=== PATIENT | female | born 1935 | race Caucasian/White ===

== ENCOUNTER 2017-06-29 12:17 | Outpatient (CLI) | payer MEDICARE, OTHER ==
[~2017-06-29 12:17] MED LIST: AMIO200T27 PO; ASCO-134 PO; CALC-1051 PO; CAPT25TA3 PO; CARV-50 PO; CEPH-194 PO; FERR325T29 PO; FURO40TA4 PO; GLUC500T12 PO; HYDR-3965 PO; HYDR-4069 PO; LEVO150T8 PO; MAGN400C PO; MULT-38 PO; NITR0.4T51 SL; PANT40TA4 PO; POTA10TA36 PO; SIMV10TA6 PO; SPIR25TA3 PO; VITA1TAB20 PO; VITA400C65 PO; WARF1TAB83 PO; [UNRECOGNIZED DRUG - CODE] NEB
[2017-06-30] MEDS ORDERED: APIX5TAB3 PO (06:37)
[2017-06-30] MEDS ORDERED: FLUT16SP2 BOTHNARES (06:37)
[2017-06-30] MEDS ORDERED: MONT10TA24 PO (06:37)
[2017-06-30] MEDS ORDERED: CALCIUM PO (06:37)
[2017-06-30] MEDS ORDERED: ALBU8.5H8 INH (06:37)
== END 2017-06-29 23:59 | disposition home or self-care (01) ==
LOC: RT 12:17
PROVIDERS: ATTEND Internal Medicine Cardiovascular Disease
DX: Z51.81 Encounter for therapeutic drug level monitoring (principal); J98.4 Other disorders of lung; D64.9 Anemia, unspecified; I11.0 Hypertensive heart disease with heart failure; I50.9 Heart failure, unspecified; J44.9 Chronic obstructive pulmonary disease, unspecified; Z79.899 Other long term (current) drug therapy; Z87.891 Personal history of nicotine dependence
CPT/HCPCS: 71046; 94010; 94727; 94729

== ENCOUNTER 2017-10-31 12:18 | Day surgery (SDC) | payer MEDICARE, OTHER ==
[~2017-10-31] VITALS: Ht 147.3 cm; Wt 79.5 kg
[~2017-10-31 12:18] MED LIST changes: +ALBU8.5H8 INH; +APIX5TAB3 PO; -CALC-1051 PO; +CALCIUM PO; -CEPH-194 PO; +FLUT16SP2 BOTHNARES; -GLUC500T12 PO; -HYDR-3965 PO; -HYDR-4069 PO; +MONT10TA24 PO; -SPIR25TA3 PO; +SPIR25TA5 PO; -WARF1TAB83 PO
[2017-10-31] MEDS ORDERED: MELA3TAB PO (12:44)
[2017-10-31] MEDS ORDERED: GABA-532 PO (12:44)
[2017-10-31] MEDS ORDERED: METO-543 (12:46)
[2017-10-31] MEDS ORDERED: potassium (12:47)
[2017-10-31] MEDS ORDERED: MIDAZolam 5mg/5ml vial ONE (12:50)
[2017-10-31] MEDS ORDERED: LIDOcaine Viscous 15ml cup ONE (12:50)
[2017-10-31] MEDS ORDERED: fentaNYL/PF 50MCG/1 ML 2ML syringe ONE (12:50)
[2017-10-31 12:51] VITALS: BP 113/72
[2017-10-31 13:35] VITALS: BP 106/63
[2017-10-31 13:45] VITALS: BP 105/60
[2017-10-31 13:55] VITALS: BP 109/66
[2017-10-31 14:05] VITALS: BP 108/61
== END 2017-10-31 14:15 | disposition home or self-care (01) ==
LOC: GI LAB 12:18
PROVIDERS: ATTEND Internal Medicine Gastroenterology
DX: K29.50 Unspecified chronic gastritis without bleeding (principal); K21.0 Gastro-esophageal reflux disease with esophagitis; E78.5 Hyperlipidemia, unspecified; G47.33 Obstructive sleep apnea (adult) (pediatric); M19.90 Unspecified osteoarthritis, unspecified site; F10.10 Alcohol abuse, uncomplicated; N81.4 Uterovaginal prolapse, unspecified; I11.0 Hypertensive heart disease with heart failure; I50.30 Unspecified diastolic (congestive) heart failure; I25.10 Atherosclerotic heart disease of native coronary artery without angina pectoris; E03.9 Hypothyroidism, unspecified; I49.5 Sick sinus syndrome; I25.2 Old myocardial infarction; E66.01 Morbid (severe) obesity due to excess calories; I48.0 Paroxysmal atrial fibrillation; Z68.36 Body mass index [BMI] 36.0-36.9, adult; Z79.891 Long term (current) use of opiate analgesic; Z88.5 Allergy status to narcotic agent; Z91.040 Latex allergy status; Z86.74 Personal history of sudden cardiac arrest; Z87.891 Personal history of nicotine dependence; Z87.01 Personal history of pneumonia (recurrent); Z90.49 Acquired absence of other specified parts of digestive tract; Z96.643 Presence of artificial hip joint, bilateral; Z96.652 Presence of left artificial knee joint; Z90.89 Acquired absence of other organs; Z79.01 Long term (current) use of anticoagulants; Z95.0 Presence of cardiac pacemaker; Z90.710 Acquired absence of both cervix and uterus; Z98.890 Other specified postprocedural states; Z79.899 Other long term (current) drug therapy
CPT/HCPCS: 43239; G0500; J2250; J3010; J7030; A4620

== ENCOUNTER 2017-11-10 17:13 | Emergency (ER) | payer MEDICARE, OTHER ==
[~2017-11-10] VITALS: Ht 147.3 cm; Wt 75.0 kg
[~2017-11-10 17:13] MED LIST changes: -ALBU8.5H8 INH; -FERR325T29 PO; -FLUT16SP2 BOTHNARES; +GABA-532 PO; -MAGN400C PO; +MELA3TAB PO; +METO-543; -MONT10TA24 PO; -POTA10TA36 PO; -VITA1TAB20 PO; +potassium
[2017-11-10 18:47] LABS: BASOPHILS % (AUTO) 0 % (0-1); EOSINOPHILS % (AUTO) 0.3 % (0-6); HEMATOCRIT 37.1 % (35.0-45.0); HEMOGLOBIN 12.1 g/dl (12.0-16.0); LYMPHOCYTES # (AUTO) 0.6 X10'3 (1.1-4.8); LYMPHOCYTES % (AUTO) 6.1 % (21-51); MEAN CORPUSCULAR HEMOGLOBIN 28.7 PG (27.0-31.0); MEAN CORPUSCULAR HGB CONC 32.6 % (33.0-36.5); MEAN CORPUSCULAR VOLUME 88.2 FL (78-98); MEAN PLATELET VOLUME 8.4 FL (7.4-10.4); MONOCYTES % (AUTO) 10.3 % (2-12); NEUTROPHILS # (AUTO) 8.2 X10'3 (1.8-7.7); NEUTROPHILS % (AUTO) 83.3 % (42-75); PLATELET COUNT 199 X10'3 (140-440); RED BLOOD COUNT 4.21 X10'6 (4.20-5.60); RED CELL DISTRIBUTION WIDTH 17.9 % (11.5-14.5); WHITE BLOOD COUNT 9.8 X10'3 (4.5-11.0)
[2017-11-10 18:56] LABS: PROTHROMBIN TIME 10.7 SECONDS (9.0-12.0)
[2017-11-10 19:00] LABS: ALANINE AMINOTRANSFERASE 16 U/L (12-78); ALBUMIN 3.9 G/DL (3.4-5.0); ALKALINE PHOSPHATASE 88 IU/L (46-116); ANION GAP 10 (8-16); ASPARTATE AMINO TRANSFERASE 17 U/L (10-37); BILIRUBIN,TOTAL 0.5 MG/DL (0.1-1.0); BLOOD UREA NITROGEN 25 MG/DL (7-18); CALCIUM 9.5 MG/DL (8.5-10.1); CHLORIDE 104 MMOL/L (99-107); CREATININE 1.19 MG/DL (0.40-0.90); GLUCOSE 99 MG/DL (70-104); POTASSIUM 4.6 MMOL/L (3.5-5.1); SODIUM 145 MMOL/L (135-145); TOTAL CARBON DIOXIDE 30.9 MMOL/L (24-32); TOTAL PROTEIN 7.8 G/DL (6.4-8.2); eGFR 44 ML/MIN
[2017-11-10] MEDS ORDERED: metoclopramide 5 mg/ml inj IV ONE (19:25)
[2017-11-10 19:39] LABS: LIPASE 112 U/L (73-393)
[2017-11-10] MEDS ORDERED: ONDA4TAB9 PO (20:20)
[2017-11-10 20:42] VITALS: BP 153/80
== END 2017-11-10 20:44 | disposition home or self-care (01) ==
LOC: ER 17:14
DX: R10.12 Left upper quadrant pain (principal); R11.2 Nausea with vomiting, unspecified; I10 Essential (primary) hypertension; I48.91 Unspecified atrial fibrillation; I25.10 Atherosclerotic heart disease of native coronary artery without angina pectoris; E78.00 Pure hypercholesterolemia, unspecified; I25.2 Old myocardial infarction; M19.90 Unspecified osteoarthritis, unspecified site; Z90.49 Acquired absence of other specified parts of digestive tract; Z90.710 Acquired absence of both cervix and uterus; Z88.6 Allergy status to analgesic agent; Z91.040 Latex allergy status
CPT/HCPCS: 36415; 74176; 80053; 83690; 85025; 85610; 96374; 99285; J2765

== ENCOUNTER 2018-01-25 14:07 | Outpatient (CLI) | payer MEDICARE, OTHER ==
[2018-01-25 14:45] LABS: TOTAL HEMOGLOBIN 11.1 G/dl (12.0-16.0)
== END 2018-01-25 23:59 | disposition home or self-care (01) ==
LOC: RT 14:07
PROVIDERS: ATTEND Internal Medicine Cardiovascular Disease
DX: Z51.81 Encounter for therapeutic drug level monitoring (principal); F17.210 Nicotine dependence, cigarettes, uncomplicated; J44.9 Chronic obstructive pulmonary disease, unspecified; I11.0 Hypertensive heart disease with heart failure; I50.9 Heart failure, unspecified; I25.2 Old myocardial infarction; Z79.899 Other long term (current) drug therapy
CPT/HCPCS: 71046; 85018; 94010; 94727; 94729

== ENCOUNTER 2018-07-18 13:48 | Emergency (ER) | payer MEDICARE, OTHER ==
[~2018-07-18] VITALS: Ht 149.9 cm; Wt 83.7 kg
[2018-07-18] MEDS ORDERED: normal saline 1000ml 1,000 ML IV ONE (14:15)
[2018-07-18] MEDS ORDERED: acetaminophen 325mg tablet PO ONE (14:25)
[2018-07-18 14:53] LABS: ALANINE AMINOTRANSFERASE 13 U/L (12-78); ALBUMIN 3.9 G/DL (3.4-5.0); ALBUMIN/GLOBULIN RATIO 1.1 (1.1-1.5); ALKALINE PHOSPHATASE 78 IU/L (46-116); ANION GAP 7 (8-16); ASPARTATE AMINO TRANSFERASE 16 U/L (10-37); BILIRUBIN,TOTAL 0.3 MG/DL (0.1-1.0); BLOOD UREA NITROGEN 29 MG/DL (7-18); BUN/CREATININE RATIO 21.3 (6.6-38.0); CALCIUM 9.5 MG/DL (8.5-10.1); CHLORIDE 102 MMOL/L (99-107); CREATININE 1.36 MG/DL (0.40-0.90); GLUCOSE 129 MG/DL (70-104); SODIUM 140 MMOL/L (135-145); TOTAL CARBON DIOXIDE 31.1 MMOL/L (24-32); TOTAL PROTEIN 7.5 G/DL (6.4-8.2); eGFR 37 ML/MIN
[2018-07-18 14:57] LABS: BASOPHILS % (AUTO) 0.7 % (0-1); EOSINOPHILS # (AUTO) 0.1 X10'3 (0-0.9); EOSINOPHILS % (AUTO) 0.9 % (0-6); HEMATOCRIT 39.5 % (35.0-45.0); HEMOGLOBIN 13.1 g/dl (12.0-16.0); LYMPHOCYTES # (AUTO) 0.8 X10'3 (1.1-4.8); LYMPHOCYTES % (AUTO) 13.5 % (21-51); MEAN CORPUSCULAR HEMOGLOBIN 31.5 PG (27.0-31.0); MEAN CORPUSCULAR HGB CONC 33.3 g/dL (33.0-36.5); MEAN CORPUSCULAR VOLUME 94.8 FL (78-98); MEAN PLATELET VOLUME 8.3 FL (7.4-10.4); MONOCYTES # (AUTO) 0.7 X10'3 (0-0.9); MONOCYTES % (AUTO) 12.6 % (2-12); NEUTROPHILS # (AUTO) 4.2 X10'3 (1.8-7.7); NEUTROPHILS % (AUTO) 72.3 % (42-75); PLATELET COUNT 187 X10'3 (140-440); RED BLOOD COUNT 4.17 X10'6 (4.20-5.60); RED CELL DISTRIBUTION WIDTH 16.9 % (11.5-14.5); WHITE BLOOD COUNT 5.8 X10'3 (4.5-11.0)
[2018-07-18 15:02] LABS: MAGNESIUM 2.4 MG/DL (1.5-2.4)
[2018-07-18 16:34] LABS: CLARITY,URINE SLIGHTLY CLOUDY (Clear); COLOR,URINE YELLOW (Yellow); GLUCOSE, URINE NEGATIVE (Neg); KETONES,URINE NEGATIVE (Neg); LEUKOCYTE ESTERASE ,URINE TRACE (Neg); NITRITES, URINE NEGATIVE (Neg); OCCULT BLOOD,URINE NEGATIVE (Neg); PH,URINE 6.5 (4.8-8.0); PROTEIN,URINE NEGATIVE (Neg); UROBILINOGEN,URINE 0.2 E.U/dL (0.2-1.0)
[2018-07-18 16:36] LABS: UA COLLECTION TYPE STRAIGHT CATH
[2018-07-18 16:41] LABS: BACTERIA,URINE 4+ /HPF (Neg); RBC,URINE NONE SEEN /HPF (0-2); SQUAMOUS EPITHELIAL CELL,UR FEW /LPF (FEW); TRANSITIONAL EPI CELLS,URINE FEW /HPF; WBC CLUMPS,URINE FEW /HPF (NEGATIVE); WBC,URINE 0-4 /HPF (0-4)
[2018-07-18] MEDS ORDERED: CEPH250T PO (17:00)
[2018-07-18] MEDS ORDERED: CefTRIAXone/D5W-Rocephin 1gm 50 ML IV ONE (17:00)
[2018-07-18 17:50] VITALS: BP 121/75
== END 2018-07-18 17:51 | disposition home or self-care (01) ==
LOC: ER 13:49
DX: N39.0 Urinary tract infection, site not specified (principal); R41.0 Disorientation, unspecified; I48.91 Unspecified atrial fibrillation; I25.10 Atherosclerotic heart disease of native coronary artery without angina pectoris; E78.00 Pure hypercholesterolemia, unspecified; I10 Essential (primary) hypertension; I25.2 Old myocardial infarction; M19.90 Unspecified osteoarthritis, unspecified site; Z90.49 Acquired absence of other specified parts of digestive tract; Z90.710 Acquired absence of both cervix and uterus; Z98.890 Other specified postprocedural states; Z91.040 Latex allergy status; Z79.899 Other long term (current) drug therapy; Z88.5 Allergy status to narcotic agent
CPT/HCPCS: 36415; 70450; 71045; 80053; 81001; 82140; 82948; 83735; 83880; 84443; 84484; 85025; 85651; 87077; 87088; 87186; 93005; 96361; 96365; 99284; J0696; J7030; P9612

== ENCOUNTER 2018-11-06 13:28 | Inpatient (IN) | payer MEDICARE, OTHER ==
[~2018-11-06] VITALS: Ht 144.8 cm; Wt 78.8 kg
[~2018-11-06 13:28] MED LIST changes: +CEPH250T PO; -MELA3TAB PO; +MELA3TAB64 PO; -METO-543; +METO-543 PO
[2018-11-06 14:06] LABS: BASOPHILS # (AUTO) 0.1 X10'3 (0-0.2); EOSINOPHILS # (AUTO) 0.2 X10'3 (0-0.9); HEMATOCRIT 39.4 % (35.0-45.0); HEMOGLOBIN 13.2 g/dl (12.0-16.0); LYMPHOCYTES # (AUTO) 0.9 X10'3 (1.1-4.8); MEAN CORPUSCULAR HEMOGLOBIN 31.9 PG (27.0-31.0); MEAN CORPUSCULAR HGB CONC 33.4 g/dL (33.0-36.5); MEAN CORPUSCULAR VOLUME 95.6 FL (78-98); MEAN PLATELET VOLUME 8.2 FL (7.4-10.4); MONOCYTES # (AUTO) 0.9 X10'3 (0-0.9); MONOCYTES % (AUTO) 14.6 % (2-12); NEUTROPHILS # (AUTO) 4.3 X10'3 (1.8-7.7); NEUTROPHILS % (AUTO) 67.4 % (42-75); PLATELET COUNT 213 X10'3 (140-440); RED BLOOD COUNT 4.12 X10'6 (4.20-5.60); RED CELL DISTRIBUTION WIDTH 15.7 % (11.5-14.5); WHITE BLOOD COUNT 6.3 X10'3 (4.5-11.0)
[2018-11-06 14:19] LABS: PARTIAL THROMBOPLASTIN TIME 35 SECONDS (22-32)
[2018-11-06 14:22] LABS: ALANINE AMINOTRANSFERASE 12 U/L (12-78); ALBUMIN 4.2 G/DL (3.4-5.0); ALBUMIN/GLOBULIN RATIO 1.2 (1.1-1.5); ALKALINE PHOSPHATASE 85 IU/L (46-116); ANION GAP 9 (8-16); ASPARTATE AMINO TRANSFERASE 14 U/L (10-37); BILIRUBIN,TOTAL 0.4 MG/DL (0.1-1.0); CALCIUM 9.9 MG/DL (8.5-10.1); CHLORIDE 102 MMOL/L (99-107); CREATININE 1.48 MG/DL (0.40-0.90); GLUCOSE 99 MG/DL (70-104); POTASSIUM 4.3 MMOL/L (3.5-5.1); SODIUM 141 MMOL/L (135-145); TOTAL PROTEIN 7.8 G/DL (6.4-8.2); eGFR 34 ML/MIN
[2018-11-06 14:28] LABS: BLOOD UREA NITROGEN 37 MG/DL (7-18)
[2018-11-06] MEDS ORDERED: nitroGLYCERIN 0.4mg SUBLingual tab SL PRN ×2 (15:00→16:05)
[2018-11-06] MEDS ORDERED: morphine 2 MG/ML inj. syringe IV PRN ×2 (16:05)
[2018-11-06] MEDS ORDERED: ondansetron/PF 4mg/2ml inj IV PRN (16:05)
[2018-11-06] MEDS ORDERED: magnesium 2GM in 50ml NS 50 ML IV PRN (16:05)
[2018-11-06] MEDS ORDERED: magnesium hydroxide 30ml (MOM) UD suspension PO PRN (16:05)
[2018-11-06] MEDS ORDERED: magnesium Cl slow-release 64mg tablet PO PRN (16:05)
[2018-11-06] MEDS ORDERED: acetaminophen 325mg tablet PO PRN (16:05)
[2018-11-06] MEDS ORDERED: mag hydrox/Alum hydrox/simeth 30ml oral suspension PO PRN (16:05)
[2018-11-06] MEDS ORDERED: potassium CL 10mEq/100ml bag 100 ML IV PRN ×2 (16:05)
[2018-11-06] MEDS ORDERED: HYDROcodone/acetaminophen 5mg/325mg tablet PO PRN (16:05)
[2018-11-06] MEDS ORDERED: magnesium 4gm in 100ml NS 100 ML IV PRN (16:05)
[2018-11-06] MEDS ORDERED: potassium Cl 20 mEq SR tablet PO PRN ×2 (16:05)
[2018-11-06] MEDS ORDERED: CAPT25TA3 PO (16:19)
[2018-11-06] MEDS ORDERED: CALC-1051 PO (16:19)
[2018-11-06] MEDS ORDERED: IPRA3AMP31 IH (16:25)
[2018-11-06] MEDS ORDERED: ipratropium/albuterol 3ml nebule NEB PRN (16:35)
[2018-11-06 17:18] VITALS: BP 164/55
--- NOTE | 2018-11-06 17:29 | NUR ---
checked pt. upon admission. pt. is alert, orientated, verbally responsive and cooperative. got pt. hooked up to the child monitor. pt. appears to be in no distress and upon asking if she has any chest pain pt. stated "no, this is the best I have felt in a while."
[2018-11-06 18:00] VITALS: BP 145/64
--- NOTE | 2018-11-06 18:00 | NUR ---
Patient in room MED 311. I have received report from Bernadette TERRAZAS and had the opportunity to ask questions and assume patient care.
--- NOTE | 2018-11-06 18:21 | NUR ---
Problems reprioritized. Patient report given, questions answered & plan of care reviewed with Lakisha TERRAZAS.
[2018-11-06 18:40] LABS: MAGNESIUM 2.5 MG/DL (1.5-2.4)
[2018-11-06] MEDS ORDERED: enoxaparin 80mg/0.8ml syringe SUBCUT SCH (20:00)
[2018-11-06] MEDS: carVEDilol 12.5mg tablet PO SCH (20:03)
[2018-11-06] MEDS ORDERED: nitroGLYCERIN 0.4mg/hour patch TD ONE (20:05)
[2018-11-06] MEDS: ipratropium/albuterol 3ml nebule NEB SCH (20:25)
[2018-11-06] MEDS ORDERED: gabapentin 300mg capsule PO SCH (21:00)
[2018-11-06] MEDS ORDERED: Melatonin 3mg tablet PO SCH (21:00)
[2018-11-06] MEDS ORDERED: atorvastatin 10mg tablet PO SCH (21:00)
[2018-11-06] MEDS: pantoprazole 40mg Tablet.DR PO SCH (21:15)
--- NOTE | 2018-11-06 21:53 | NUR ---
Patient in room MED 311. I have received report from Bernadette TERRAZAS and had the opportunity to ask questions and assume patient care. Addendum: 11/06/18 at 2156 by Lakisha Mccormack RN report at 1800 11/06/18
--- NOTE | 2018-11-06 21:53 | NUR ---
Patient in room MED 311. I have received report from Bernadette TERRAZAS and had the opportunity to ask questions and assume patient care.
[2018-11-06 22:00] VITALS: BP 137/53
[2018-11-07 02:00] VITALS: BP 126/50
[2018-11-07 02:10] LABS: ALBUMIN 3.5 G/DL (3.4-5.0); ANION GAP 8 (8-16); BLOOD UREA NITROGEN 28 MG/DL (7-18); BUN/CREATININE RATIO 18.8 (6.6-38.0); CALCIUM 9.2 MG/DL (8.5-10.1); CHLORIDE 101 MMOL/L (99-107); CREATININE 1.49 MG/DL (0.40-0.90); GLUCOSE 103 MG/DL (70-104); MAGNESIUM 2.3 MG/DL (1.5-2.4); POTASSIUM 4.3 MMOL/L (3.5-5.1); SODIUM 139 MMOL/L (135-145); TOTAL CARBON DIOXIDE 29.6 MMOL/L (24-32); eGFR 34 ML/MIN
[2018-11-07 05:00] LABS: BASOPHILS # (AUTO) 0.1 X10'3 (0-0.2); BASOPHILS % (AUTO) 1.4 % (0-1); EOSINOPHILS # (AUTO) 0.2 X10'3 (0-0.9); EOSINOPHILS % (AUTO) 4.6 % (0-6); HEMOGLOBIN 12.1 g/dl (12.0-16.0); LYMPHOCYTES # (AUTO) 0.9 X10'3 (1.1-4.8); LYMPHOCYTES % (AUTO) 17.2 % (21-51); MEAN CORPUSCULAR HEMOGLOBIN 32.1 PG (27.0-31.0); MEAN CORPUSCULAR HGB CONC 33.6 g/dL (33.0-36.5); MEAN CORPUSCULAR VOLUME 95.5 FL (78-98); MEAN PLATELET VOLUME 8.2 FL (7.4-10.4); MONOCYTES # (AUTO) 0.9 X10'3 (0-0.9); NEUTROPHILS % (AUTO) 59.8 % (42-75); PLATELET COUNT 177 X10'3 (140-440); RED BLOOD COUNT 3.77 X10'6 (4.20-5.60); RED CELL DISTRIBUTION WIDTH 15.3 % (11.5-14.5); WHITE BLOOD COUNT 5.1 X10'3 (4.5-11.0)
[2018-11-07 06:00] VITALS: BP 121/57
--- NOTE | 2018-11-07 06:43 | NUR ---
Problems reprioritized. Patient report given, questions answered & plan of care reviewed with Danial bernal.
[2018-11-07] MEDS ORDERED: levoTHYROXINE 75mcg tablet PO SCH (07:00)
[2018-11-07] MEDS ORDERED: furosemide 20 MG/2 ML vial IV SCH (08:00)
[2018-11-07] MEDS ORDERED: K and/or MAG REPLACEMENT MC SCH (08:00)
[2018-11-07] MEDS ORDERED: calcium carbonate/vitamin D3 tablet PO SCH (08:00)
[2018-11-07] MEDS ORDERED: vitamin E 400 unit capsule PO SCH (08:00)
[2018-11-07] MEDS ORDERED: amiodarone 200mg tablet PO SCH (08:00)
[2018-11-07] MEDS ORDERED: multivitamins, therapeutics tablet PO SCH (08:00)
[2018-11-07] MEDS ORDERED: regadenoson 0.4mg/5ml syringe IV ONE (08:50)
[2018-11-07] MEDS ORDERED: aminophylline 250mg/10ml inj. IV ONE (08:50)
[2018-11-07] MEDS: carVEDilol 12.5mg tablet PO SCH (09:13)
--- NOTE | 2018-11-07 09:13 | NUR ---
Stress test d/c'd per Zofia Young GREIGE MENDER
[2018-11-07] MEDS: pantoprazole 40mg Tablet.DR PO SCH (09:14)
[2018-11-07] MEDS ORDERED: isosorbide mononitrate 30mg tab.SR.24H PO SCH (09:15)
[2018-11-07] MEDS: ipratropium/albuterol 3ml nebule NEB SCH (09:26)
[2018-11-07 12:30] VITALS: BP 11/65
[2018-11-07] MEDS ORDERED: FURO40TA4 PO (12:44)
[2018-11-07] MEDS ORDERED: CARV3.12 PO (12:44)
[2018-11-07] MEDS ORDERED: POTA20TA10 PO (12:44)
[2018-11-07] MEDS ORDERED: ISOS30TA6 PO (12:44)
--- NOTE | 2018-11-07 15:58 | NUR ---
pt medicated with first dose of Imdur 30 mg at 1230 ,due to nausea after breakfast,with 150 cc emesis,relieved with zofran and reglan. pt observed on r/a for 2 hours with sao2 occ dipping 88-89%,up in 90's with deep breathes,pt states wears home cpap with sleep. BP dipped to 116/44 1 hour after imdur ,128/43 at discharge.Pt michelle amb in room w/o dizziness,dc'd home with all belongings after thoroughly reviewing all dischage instructions
--- NOTE | 2018-11-07 18:12 | NUR ---
Orientee documentation and med administration: I have reviewed and agree with all interventions, assessments performed and documented by Eleanor.
[2018-11-07] MEDS ORDERED: apixaban 5mg tablet PO SCH (20:00)
== END 2018-11-07 15:15 | disposition home or self-care (01) | DRG 303 ==
LOC: ER 13:29 → MED 3N 16:39
PROVIDERS: ADMIT Hospitalist; ATTEND Hospitalist
DX: I25.110 Atherosclerotic heart disease of native coronary artery with unstable angina pectoris (principal); I13.0 Hypertensive heart and chronic kidney disease with heart failure and stage 1 through stage 4 chronic kidney disease, or unspecified chronic kidney disease; I50.32 Chronic diastolic (congestive) heart failure; N18.4 Chronic kidney disease, stage 4 (severe); E03.9 Hypothyroidism, unspecified; E66.9 Obesity, unspecified; E78.00 Pure hypercholesterolemia, unspecified; E78.5 Hyperlipidemia, unspecified; G47.33 Obstructive sleep apnea (adult) (pediatric); I27.20 Pulmonary hypertension, unspecified; I48.0 Paroxysmal atrial fibrillation; I49.5 Sick sinus syndrome; M19.90 Unspecified osteoarthritis, unspecified site; Z90.49 Acquired absence of other specified parts of digestive tract; Z90.710 Acquired absence of both cervix and uterus; I25.2 Old myocardial infarction; Z95.0 Presence of cardiac pacemaker; Z88.5 Allergy status to narcotic agent; Z91.040 Latex allergy status; Z68.37 Body mass index [BMI] 37.0-37.9, adult; Z79.899 Other long term (current) drug therapy
CPT/HCPCS: 36415; 71046; 80048; 80053; 83735; 83880; 84439; 84443; 84484; 85025; 85610; 85730; 87081; 93005; 94640; 94760; 99285; A9500; G0378; J1650; J1940; J2405; J8597

== ENCOUNTER 2019-08-29 02:14 | Inpatient (IN) | payer MEDICARE, OTHER ==
[~2019-08-29] VITALS: Ht 172.7 cm; Wt 79.5 kg
[~2019-08-29 02:14] MED LIST changes: -ASCO-134 PO; +CALC-1051 PO; -CALCIUM PO; -CAPT25TA3 PO; -CARV-50 PO; +CARV3.12 PO; -CEPH250T PO; +IPRA3AMP31 IH; +ISOS30TA6 PO; +MELA3TAB39 PO; -MELA3TAB64 PO; +POTA20TA10 PO; -SIMV10TA6 PO; +SIMV10TA98 PO; -SPIR25TA5 PO; +VITA-134 PO; -VITA400C65 PO
[2019-08-29] MEDS ORDERED: nitroGLYCERIN 0.4mg SUBLingual tab SL PRN (02:20)
[2019-08-29] MEDS ORDERED: aspirin 81mg tab.chew PO ONE (02:20)
[2019-08-29] MEDS ORDERED: fentaNYL/PF 50MCG/1 ML 2ML syringe IV ONE (02:25)
[2019-08-29 02:27] LABS: BASOPHILS # (AUTO) 0.1 X10'3 (0-0.2); BASOPHILS % (AUTO) 0.8 % (0-1); EOSINOPHILS # (AUTO) 0.1 X10'3 (0-0.9); EOSINOPHILS % (AUTO) 0.7 % (0-6); HEMATOCRIT 39.7 % (35.0-45.0); HEMOGLOBIN 13.2 g/dl (12.0-16.0); LYMPHOCYTES # (AUTO) 0.7 X10'3 (1.1-4.8); LYMPHOCYTES % (AUTO) 9.8 % (21-51); MEAN CORPUSCULAR HEMOGLOBIN 31.9 PG (27.0-31.0); MEAN CORPUSCULAR HGB CONC 33.3 g/dL (33.0-36.5); MEAN PLATELET VOLUME 8.4 FL (7.4-10.4); MONOCYTES # (AUTO) 0.8 X10'3 (0-0.9); MONOCYTES % (AUTO) 11.2 % (2-12); NEUTROPHILS # (AUTO) 5.8 X10'3 (1.8-7.7); NEUTROPHILS % (AUTO) 77.5 % (42-75); PLATELET COUNT 160 X10'3 (140-440); RED BLOOD COUNT 4.13 X10'6 (4.20-5.60); WHITE BLOOD COUNT 7.5 X10'3 (4.5-11.0)
[2019-08-29] MEDS ORDERED: ondansetron/PF 4mg/2ml inj IV ONE (02:35)
[2019-08-29 02:42] LABS: ALANINE AMINOTRANSFERASE 12 U/L (12-78); ALBUMIN 3.9 G/DL (3.4-5.0); ALBUMIN/GLOBULIN RATIO 1.2 (1.1-1.5); ALKALINE PHOSPHATASE 67 IU/L (46-116); ANION GAP 8 (8-16); ASPARTATE AMINO TRANSFERASE 16 U/L (10-37); BILIRUBIN,TOTAL 0.5 MG/DL (0.1-1.0); BLOOD UREA NITROGEN 25 MG/DL (7-18); BUN/CREATININE RATIO 17.6 (6.6-38.0); CALCIUM 9.7 MG/DL (8.5-10.1); CHLORIDE 99 MMOL/L (99-107); CREATININE 1.42 MG/DL (0.40-0.90); GLUCOSE 127 MG/DL (70-104); POTASSIUM 3.9 MMOL/L (3.5-5.1); SODIUM 136 MMOL/L (135-145); TOTAL CARBON DIOXIDE 29.2 MMOL/L (24-32); TOTAL PROTEIN 7.2 G/DL (6.4-8.2); eGFR 35 ML/MIN
[2019-08-29 02:49] LABS: MAGNESIUM 2.1 MG/DL (1.5-2.4)
[2019-08-29] MEDS ORDERED: magnesium 2GM in 50ml NS 50 ML IV PRN (03:05)
[2019-08-29] MEDS ORDERED: potassium Cl 20 mEq SR tablet PO PRN ×2 (03:05)
[2019-08-29] MEDS ORDERED: potassium CL 10mEq/100ml bag 100 ML IV PRN ×2 (03:05)
[2019-08-29] MEDS ORDERED: magnesium 4gm in 100ml NS 100 ML IV PRN (03:05)
[2019-08-29] MEDS ORDERED: magnesium Cl slow-release 64mg tablet PO PRN (03:05)
[2019-08-29] MEDS ORDERED: ondansetron/PF 4mg/2ml inj IV PRN (03:05)
[2019-08-29] MEDS ORDERED: acetaminophen 325mg tablet PO PRN (03:05)
--- NOTE | 2019-08-29 04:00 | NUR ---
Patient in room ORTHO 4022. I have received report from Pamela TERRAZAS and had the opportunity to ask questions and assume patient care.
[2019-08-29 04:20] VITALS: BP 145/71
--- NOTE | 2019-08-29 04:20 | NUR ---
pt to the floor w/ Pamela TERRAZAS
--- NOTE | 2019-08-29 06:16 | NUR ---
Problems reprioritized. Patient report given, questions answered & plan of care reviewed with Geovani TERRAZAS.
[2019-08-29] MEDS: K and/or MAG REPLACEMENT MC SCH ×2 (08:00→20:00)
--- NOTE | 2019-08-29 08:15 | NUR ---
[id number]- Needs 12 lead EKG at 0800 thank you
[2019-08-29] MEDS ORDERED: MONT10TA26 PO (10:19)
[2019-08-29] MEDS ORDERED: CARV25TA2 PO (10:19)
[2019-08-29] MEDS ORDERED: ATOR10TA70 PO (10:19)
[2019-08-29] MEDS ORDERED: SPIR25TA5 PO (10:19)
[2019-08-29] MEDS ORDERED: FURO40TA4 PO (10:19)
[2019-08-29 10:22] VITALS: BP 119/54
[2019-08-29] MEDS ORDERED: [UNRECOGNIZED DRUG - CODE] NEB (10:22)
[2019-08-29] MEDS ORDERED: CARV6.253 PO (11:27)
[2019-08-29] MEDS ORDERED: CARV12.529 PO (11:34)
[2019-08-29] MEDS ORDERED: CARV6.252 PO (12:02)
[2019-08-29] MEDS ORDERED: albuterol 2.5 MG/3 ML nebule NEB PRN (12:40)
[2019-08-29] MEDS: furosemide 20 MG/2 ML vial IV SCH ×2 (13:07→20:03)
--- NOTE | 2019-08-29 15:09 | NUR ---
Per MD Jordan hold eliquis for angiogram
[2019-08-29 18:00] VITALS: BP 138/57
--- NOTE | 2019-08-29 18:15 | NUR ---
Patient in room ORTHO 4022. I have received report from MK Torres and had the opportunity to ask questions and assume patient care.
--- NOTE | 2019-08-29 18:19 | NUR ---
Problems reprioritized. Patient report given, questions answered & plan of care reviewed with Karissa TERRAZAS.
[2019-08-29 19:59] VITALS: BP 151/63
[2019-08-29] MEDS ORDERED: apixaban 5mg tablet PO SCH (20:00)
[2019-08-29] MEDS: carvedilol 6.25mg tablet PO SCH (20:03)
[2019-08-29] MEDS: Melatonin 3mg tablet PO SCH (21:00)
[2019-08-29] MEDS: gabapentin 300mg capsule PO SCH (21:03)
[2019-08-29 22:00] VITALS: BP 127/52
[2019-08-30] VITALS (11 sets, daily range): BP systolic 111–171; BP diastolic 56–76
[2019-08-30 06:10] LABS: EOSINOPHILS # (AUTO) 0.1 X10'3 (0-0.9); EOSINOPHILS % (AUTO) 1.6 % (0-6); HEMATOCRIT 40.2 % (35.0-45.0); HEMOGLOBIN 13.3 g/dl (12.0-16.0); LYMPHOCYTES # (AUTO) 0.7 X10'3 (1.1-4.8); LYMPHOCYTES % (AUTO) 15.8 % (21-51); MEAN CORPUSCULAR HEMOGLOBIN 32.2 PG (27.0-31.0); MEAN CORPUSCULAR HGB CONC 33.2 g/dL (33.0-36.5); MEAN PLATELET VOLUME 8.7 FL (7.4-10.4); MONOCYTES # (AUTO) 0.6 X10'3 (0-0.9); MONOCYTES % (AUTO) 13.7 % (2-12); NEUTROPHILS # (AUTO) 3.1 X10'3 (1.8-7.7); NEUTROPHILS % (AUTO) 67.9 % (42-75); PLATELET COUNT 143 X10'3 (140-440); RED BLOOD COUNT 4.14 X10'6 (4.20-5.60); RED CELL DISTRIBUTION WIDTH 16.4 % (11.5-14.5); WHITE BLOOD COUNT 4.5 X10'3 (4.5-11.0)
[2019-08-30 06:34] LABS: ALBUMIN 3.6 G/DL (3.4-5.0); ANION GAP 5 (8-16); BLOOD UREA NITROGEN 21 MG/DL (7-18); BUN/CREATININE RATIO 15.7 (6.6-38.0); CALCIUM 9.2 MG/DL (8.5-10.1); CHLORIDE 101 MMOL/L (99-107); CHOL/HDL RATIO 2.6 (0.00-4.99); CHOLESTEROL 195 MG/DL (0-200); CREATININE 1.34 MG/DL (0.40-0.90); GLUCOSE 103 MG/DL (70-104); HDL CHOLESTEROL 76 MG/DL (35-60); LDL CHOLESTEROL 100 MG/DL (50-100); MAGNESIUM 2.2 MG/DL (1.5-2.4); POTASSIUM 4.5 MMOL/L (3.5-5.1); SODIUM 137 MMOL/L (135-145); TOTAL CARBON DIOXIDE 31.2 MMOL/L (24-32); TRIGLYCERIDES 62 MG/DL (20-135); eGFR 38 ML/MIN
--- NOTE | 2019-08-30 06:36 | NUR ---
Problems reprioritized. Patient report given, questions answered & plan of care reviewed with MK Torres.
[2019-08-30] MEDS: levoTHYROXINE 75mcg tablet PO SCH (07:40)
[2019-08-30] MEDS: pantoprazole 40mg Tablet.DR PO SCH (07:40)
[2019-08-30] MEDS: amiodarone 200mg tablet PO SCH (07:41)
[2019-08-30] MEDS: spironolactone 25 MG tablet PO SCH (07:41)
[2019-08-30] MEDS: atorvastatin 10mg tablet PO SCH (07:41)
[2019-08-30] MEDS: montelukast 10mg tablet PO SCH (07:41)
[2019-08-30] MEDS: carvedilol 6.25mg tablet PO SCH (07:42)
[2019-08-30] MEDS: furosemide 20 MG/2 ML vial IV SCH (07:46)
[2019-08-30] MEDS: K and/or MAG REPLACEMENT MC SCH ×2 (08:00→20:00)
[2019-08-30 10:13] LABS: PARTIAL THROMBOPLASTIN TIME 32 SECONDS (22-32)
[2019-08-30] MEDS: acetylcysteine 200 MG/ml 4ml vial PO SCH (10:54)
[2019-08-30] MEDS ORDERED: LIDOcaine 4% (40 mg/ml) topical solution 50ml TP ONE (14:00)
--- NOTE | 2019-08-30 14:52 | NUR ---
PAGER ID: [phone] MESSAGE: [phone] Boyd Cha pt does not have a code status listed, also do we need a type and screen before heart cath? [phone]
[2019-08-30] MEDS ORDERED: iohexol 350MG/ML 100ml bottle IV ONE (16:30)
[2019-08-30] MEDS ORDERED: LIDOcaine 1% (10mg/ml)w/preservative injection 20ml MDV ONE (16:30)
[2019-08-30] MEDS ORDERED: fentaNYL/PF 50MCG/1 ML 2ML syringe ONE (16:30)
[2019-08-30] MEDS ORDERED: heparin 1,000unit/ml 10ml vial 10 ML ONE (16:30)
[2019-08-30] MEDS ORDERED: verapamil 2.5 mg/ml inj IV ONE (16:30)
[2019-08-30] MEDS ORDERED: midazolam 2 mg/2 ml injection ONE (16:30)
[2019-08-30] MEDS ORDERED: nitroGLYCERIN-Tridil 50MG/D5W 250 ML IV ONE (16:30)
[2019-08-30] MEDS ORDERED: iohexol 350 MG/ML 50ML vial IV ONE (16:30)
--- NOTE | 2019-08-30 18:30 | NUR ---
Problems reprioritized. Patient report given, questions answered & plan of care reviewed with Karissa TERRAZAS.
--- NOTE | 2019-08-30 18:30 | NUR ---
Patient in room ORTHO 4022. I have received report from MK Torres and had the opportunity to ask questions and assume patient care.
[2019-08-30] MEDS: Melatonin 3mg tablet PO SCH (21:00)
[2019-08-31] MEDS: carvedilol 6.25mg tablet PO SCH ×2 (00:57→07:49)
[2019-08-31] MEDS: gabapentin 300mg capsule PO SCH (00:57)
[2019-08-31] MEDS: acetylcysteine 200 MG/ml 4ml vial PO SCH ×2 (00:58→07:49)
[2019-08-31] MEDS: furosemide 20 MG/2 ML vial IV SCH ×2 (00:58→07:49)
[2019-08-31 02:00] VITALS: BP 115/54
[2019-08-31 02:15] VITALS: BP 115/54
[2019-08-31 06:15] VITALS: BP 105/51
--- NOTE | 2019-08-31 06:20 | NUR ---
Patient in room ORTHO 4022. I have received report from Karissa and had the opportunity to ask questions and assume patient care.
--- NOTE | 2019-08-31 06:24 | NUR ---
Problems reprioritized. Patient report given, questions answered & plan of care reviewed with MK Santiago.
[2019-08-31 06:30] LABS: BASOPHILS % (AUTO) 0.9 % (0-1); EOSINOPHILS # (AUTO) 0.1 X10'3 (0-0.9); EOSINOPHILS % (AUTO) 1.6 % (0-6); HEMATOCRIT 40.7 % (35.0-45.0); HEMOGLOBIN 13.5 g/dl (12.0-16.0); LYMPHOCYTES # (AUTO) 0.5 X10'3 (1.1-4.8); LYMPHOCYTES % (AUTO) 10.3 % (21-51); MEAN CORPUSCULAR HEMOGLOBIN 32.2 PG (27.0-31.0); MEAN CORPUSCULAR HGB CONC 33.2 g/dL (33.0-36.5); MEAN CORPUSCULAR VOLUME 96.9 FL (78-98); MEAN PLATELET VOLUME 8.6 FL (7.4-10.4); MONOCYTES # (AUTO) 0.7 X10'3 (0-0.9); NEUTROPHILS # (AUTO) 3.8 X10'3 (1.8-7.7); NEUTROPHILS % (AUTO) 74.2 % (42-75); PLATELET COUNT 151 X10'3 (140-440); WHITE BLOOD COUNT 5.2 X10'3 (4.5-11.0)
[2019-08-31 06:34] LABS: ALBUMIN 3.4 G/DL (3.4-5.0); ANION GAP 6 (8-16); BLOOD UREA NITROGEN 19 MG/DL (7-18); CALCIUM 9.1 MG/DL (8.5-10.1); CHLORIDE 100 MMOL/L (99-107); CREATININE 1.36 MG/DL (0.40-0.90); GLUCOSE 107 MG/DL (70-104); MAGNESIUM 2.1 MG/DL (1.5-2.4); POTASSIUM 4.5 MMOL/L (3.5-5.1); SODIUM 136 MMOL/L (135-145); TOTAL CARBON DIOXIDE 30.5 MMOL/L (24-32); eGFR 37 ML/MIN
[2019-08-31] MEDS: K and/or MAG REPLACEMENT MC SCH (07:33)
[2019-08-31] MEDS: pantoprazole 40mg Tablet.DR PO SCH (07:49)
[2019-08-31] MEDS: amiodarone 200mg tablet PO SCH (07:49)
[2019-08-31] MEDS: levoTHYROXINE 75mcg tablet PO SCH (07:49)
[2019-08-31] MEDS: montelukast 10mg tablet PO SCH (07:49)
[2019-08-31] MEDS: spironolactone 25 MG tablet PO SCH (07:49)
[2019-08-31] MEDS: atorvastatin 10mg tablet PO SCH (07:49)
[2019-08-31 07:50] VITALS: BP 129/67
[2019-08-31 10:15] VITALS: BP 106/53
[2019-08-31] MEDS ORDERED: ondansetron 4mg rapidly disintigrating tab PO PRN (12:25)
[2019-08-31 14:15] VITALS: BP 116/45
--- NOTE | 2019-08-31 14:45 | NUR ---
Reviewed discharge instructions with pt. Pt verbalized understanding. Pt dressed herself, is alert, oriented and ready to go home. Pt was wheeled downstairs to be driven home by her daughter.
== END 2019-08-31 14:50 | disposition home or self-care (01) | DRG 286 ==
LOC: ER 02:14 → ED HOLD 03:05 → ORTHO 4S 04:10
PROVIDERS: ADMIT Internal Medicine; ATTEND Internal Medicine
PROC: 4A023N7 Measurement of Cardiac Sampling and Pressure, Left Heart, Percutaneous Approach (ICD-10-PCS; principal; 2019-08-30)
PROC: B2111ZZ Fluoroscopy of Multiple Coronary Arteries using Low Osmolar Contrast (ICD-10-PCS; 2019-08-30)
PROC: B2151ZZ Fluoroscopy of Left Heart using Low Osmolar Contrast (ICD-10-PCS; 2019-08-30)
PROC: B41F1ZZ Fluoroscopy of Right Lower Extremity Arteries using Low Osmolar Contrast (ICD-10-PCS; 2019-08-30)
DX: I25.110 Atherosclerotic heart disease of native coronary artery with unstable angina pectoris (principal); I50.33 Acute on chronic diastolic (congestive) heart failure; I13.0 Hypertensive heart and chronic kidney disease with heart failure and stage 1 through stage 4 chronic kidney disease, or unspecified chronic kidney disease; Z88.5 Allergy status to narcotic agent; E78.5 Hyperlipidemia, unspecified; K21.9 Gastro-esophageal reflux disease without esophagitis; I48.0 Paroxysmal atrial fibrillation; I11.0 Hypertensive heart disease with heart failure; G47.30 Sleep apnea, unspecified; E66.9 Obesity, unspecified; Z91.040 Latex allergy status; Z95.0 Presence of cardiac pacemaker; Z90.710 Acquired absence of both cervix and uterus; Z90.49 Acquired absence of other specified parts of digestive tract; M19.90 Unspecified osteoarthritis, unspecified site; I25.2 Old myocardial infarction; I27.20 Pulmonary hypertension, unspecified; E03.9 Hypothyroidism, unspecified; N18.9 Chronic kidney disease, unspecified; E78.00 Pure hypercholesterolemia, unspecified; Z87.01 Personal history of pneumonia (recurrent); Z68.26 Body mass index [BMI] 26.0-26.9, adult
CPT/HCPCS: 36415; 71045; 76937; 80048; 80053; 80061; 83735; 83880; 84439; 84443; 84484; 85025; 85610; 85730; 87081; 93005; 93458; 94760; 96374; 96375; 99152; 99153; 99285; A4620; A5120; A6258; C1760; C1769; C1894; G0378; J1644; J1940; J2001; J2250; J2405; J3010; J3490; J7030; Q9967

== ENCOUNTER 2020-05-26 11:20 | Day surgery (SDC) | payer MEDICARE, OTHER ==
[~2020-05-26] VITALS: Ht 149.9 cm; Wt 81.8 kg
[~2020-05-26 11:20] MED LIST changes: +ATOR10TA70 PO; -CARV3.12 PO; +CARV6.252 PO; -IPRA3AMP31 IH; -ISOS30TA6 PO; +LIDOcaine 1% (10mg/ml) 2ml vial ONE; -METO-543 PO; +MONT10TA32 PO; -PANT40TA4 PO; +PANT40TA54 PO; -POTA20TA10 PO; -SIMV10TA98 PO; +SPIR25TA5 PO; -VITA-134 PO; -potassium
[2020-05-26 11:39] VITALS: BP 177/74
[2020-05-26] MEDS ORDERED: POTA10CA44 PO (12:31)
[2020-05-26] MEDS ORDERED: ACET-1008 PO (12:31)
[2020-05-26] MEDS ORDERED: fentaNYL/PF 50MCG/1 ML 2ML syringe ONE (12:49)
[2020-05-26] MEDS ORDERED: MIDAZolam 1 MG/ML 5ML VIAL ONE (12:49)
[2020-05-26] MEDS ORDERED: LIDOcaine Viscous 15ml cup ONE ×2 (12:49→12:50)
[2020-05-26 13:05] VITALS: BP 177/74
[2020-05-26 13:15] VITALS: BP 135/63
[2020-05-26 13:25] VITALS: BP 136/84
[2020-05-26 13:35] VITALS: BP 132/70
[2020-05-26 13:45] VITALS: BP 124/64
== END 2020-05-26 13:50 | disposition home or self-care (01) ==
LOC: GI LAB 11:20
PROVIDERS: ATTEND Internal Medicine Gastroenterology
DX: R11.2 Nausea with vomiting, unspecified (principal); K22.8 Other specified diseases of esophagus; K29.50 Unspecified chronic gastritis without bleeding; I11.0 Hypertensive heart disease with heart failure; I50.9 Heart failure, unspecified; J44.9 Chronic obstructive pulmonary disease, unspecified; Z95.0 Presence of cardiac pacemaker; Z98.890 Other specified postprocedural states
CPT/HCPCS: 43239; G0500; J2001; J2250; J3010; J7040; 88305; 88342; 99152; A4620

== ENCOUNTER 2020-06-03 14:47 | Emergency (ER) | payer MEDICARE, OTHER ==
[~2020-06-03] VITALS: Ht 149.9 cm; Wt 37.2 kg
[~2020-06-03 14:47] MED LIST changes: +ACET-1008 PO; -LIDOcaine 1% (10mg/ml) 2ml vial ONE; -MONT10TA32 PO; +POTA10CA44 PO
[2020-06-03] MEDS ORDERED: acetaminophen 325mg tablet PO ONE (16:10)
[2020-06-03 17:38] VITALS: BP 141/70
== END 2020-06-03 17:37 | disposition home or self-care (01) ==
LOC: ER 14:48
DX: S00.83XA Contusion of other part of head, initial encounter (principal); R51.9 Headache, unspecified; I48.91 Unspecified atrial fibrillation; I25.10 Atherosclerotic heart disease of native coronary artery without angina pectoris; E78.00 Pure hypercholesterolemia, unspecified; I10 Essential (primary) hypertension; I25.2 Old myocardial infarction; M19.90 Unspecified osteoarthritis, unspecified site; Z87.01 Personal history of pneumonia (recurrent); Z90.89 Acquired absence of other organs; Z90.49 Acquired absence of other specified parts of digestive tract; Z90.710 Acquired absence of both cervix and uterus; Z98.890 Other specified postprocedural states; Z95.0 Presence of cardiac pacemaker; Z60.2 Problems related to living alone; Z88.5 Allergy status to narcotic agent; Z91.040 Latex allergy status; Z79.899 Other long term (current) drug therapy; W18.39XA Other fall on same level, initial encounter; Y93.89 Activity, other specified; Y92.89 Other specified places as the place of occurrence of the external cause; Y99.8 Other external cause status
CPT/HCPCS: 70450; 70486; 72125; 99285

== ENCOUNTER 2020-09-26 14:16 | Outpatient (CLI) | payer MEDICARE, OTHER ==
[~2020-09-26 14:16] MED LIST changes: -AMIO200T27 PO; +DIGO125T97 PO; +FURO20TA4 PO; -FURO40TA4 PO; +HYDR-3965 PO; +METO5TAB85 PO; +MONT10TA32 PO; -POTA10CA44 PO; +PRED10TA23 PO
== END 2020-09-26 23:59 | disposition home or self-care (01) ==
LOC: RT 14:16
PROVIDERS: ATTEND Internal Medicine Cardiovascular Disease
DX: J44.9 Chronic obstructive pulmonary disease, unspecified (principal); I51.7 Cardiomegaly; Z79.899 Other long term (current) drug therapy
CPT/HCPCS: 71046; 94010; 94727; 94729

== ENCOUNTER 2022-03-19 18:06 | Emergency (ER) | payer MEDICARE, OTHER ==
[~2022-03-19] VITALS: Ht 149.9 cm; Wt 81.8 kg
[~2022-03-19 18:06] MED LIST changes: -ACET-1008 PO; +ALBU17AE26 IH; +ASCO-22 PO; -ATOR10TA70 PO; +ATOR40TA PO; +BIOT5000 PO; +CARV12.5 PO; -CARV6.252 PO; -DIGO125T97 PO; +DULO-31 PO; +FERR324T23 PO; +FURO-149 PO; -FURO20TA4 PO; -GABA-532 PO; +GABA300C PO; -HYDR-3965 PO; +IPRA3AMP9 IH; +LEVO125T PO; -LEVO150T8 PO; +LUTE1CAP5 PO; +MAGN250T11 PO; +MECL-159 PO; -MELA3TAB39 PO; -METO5TAB85 PO; +MODA200T48 PO; +MONT-40 PO; -MONT10TA32 PO; +ONDA-103 PO; +POTA99TA18 PO; -PRED10TA23 PO; +VITA400T10 PO; -[UNRECOGNIZED DRUG - CODE] NEB
[2022-03-19 18:41] VITALS: BP 143/50
[2022-03-19 19:09] LABS: BASOPHILS # (AUTO) 0.1 X10'3 (0-0.2); BASOPHILS % (AUTO) 1.1 % (0-1); EOSINOPHILS # (AUTO) 0.1 X10'3 (0-0.9); EOSINOPHILS % (AUTO) 1.6 % (0-6); HEMATOCRIT 29.9 % (35.0-45.0); HEMOGLOBIN 9.5 g/dl (12.0-16.0); LYMPHOCYTES # (AUTO) 0.6 X10'3 (1.1-4.8); LYMPHOCYTES % (AUTO) 12.4 % (21-51); MEAN CORPUSCULAR HEMOGLOBIN 30.5 PG (27.0-31.0); MEAN CORPUSCULAR HGB CONC 31.6 g/dL (33.0-36.5); MEAN CORPUSCULAR VOLUME 96.4 FL (78-98); MEAN PLATELET VOLUME 8.6 FL (7.4-10.4); MONOCYTES # (AUTO) 0.6 X10'3 (0-0.9); MONOCYTES % (AUTO) 11.2 % (2-12); NEUTROPHILS # (AUTO) 3.7 X10'3 (1.8-7.7); NEUTROPHILS % (AUTO) 73.7 % (42-75); PLATELET COUNT 144 X10'3 (140-440); RED BLOOD COUNT 3.11 X10'6 (4.20-5.60)
[2022-03-19 19:25] LABS: ALANINE AMINOTRANSFERASE 11 U/L (12-78); ALBUMIN 3.5 G/DL (3.4-5.0); ALKALINE PHOSPHATASE 131 IU/L (46-116); ANION GAP 4 (8-16); ASPARTATE AMINO TRANSFERASE 15 U/L (10-37); BILIRUBIN,TOTAL 0.5 MG/DL (0.1-1.0); BLOOD UREA NITROGEN 18 MG/DL (7-18); BUN/CREATININE RATIO 16.5 (6.6-38.0); CALCIUM 10.3 MG/DL (8.5-10.1); CHLORIDE 102 MMOL/L (99-107); CREATININE 1.09 MG/DL (0.40-0.90); GLUCOSE 101 MG/DL (70-104); POTASSIUM 3.9 MMOL/L (3.5-5.1); SODIUM 143 MMOL/L (135-145); TOTAL CARBON DIOXIDE 36.9 MMOL/L (24-32); TOTAL PROTEIN 6.9 G/DL (6.4-8.2); eGFR 48 ML/MIN
[2022-03-19 19:28] LABS: MAGNESIUM 2.7 MG/DL (1.5-2.4)
[2022-03-19 20:29] LABS: ANISOCYTOSIS 2+; PLATELET ESTIMATE DECREASED
[2022-03-19 20:30] LABS: ELLIPTOCYTES FEW; HYPOCHROMASIA 1+
== END 2022-03-19 22:12 ==
LOC: ER 18:06
DX: R11.2 Nausea with vomiting, unspecified (principal); I51.9 Heart disease, unspecified; I11.0 Hypertensive heart disease with heart failure; E78.00 Pure hypercholesterolemia, unspecified; J44.9 Chronic obstructive pulmonary disease, unspecified; Z90.49 Acquired absence of other specified parts of digestive tract; Z98.890 Other specified postprocedural states; Z91.040 Latex allergy status; Z88.5 Allergy status to narcotic agent; Z79.899 Other long term (current) drug therapy; Z79.1 Long term (current) use of non-steroidal anti-inflammatories (NSAID); Z79.2 Long term (current) use of antibiotics
CPT/HCPCS: 36415; 71045; 80053; 83605; 83735; 84145; 84484; 85008; 85025; 87040; 93005; 99285

== ENCOUNTER 2022-05-13 17:11 | Emergency (ER) | payer MEDICARE, OTHER ==
[~2022-05-13] VITALS: Ht 149.9 cm; Wt 81.8 kg
[~2022-05-13 17:11] MED LIST changes: +ACET325T57 PO; +ACET325T58 PO; -ALBU17AE26 IH; +ALBU17AE26 PO; +APIX2.5T PO; -APIX5TAB3 PO; -ASCO-22 PO; -ATOR40TA PO; +ATOR40TA71 PO; -BIOT5000 PO; -CALC-1051 PO; -CARV12.5 PO; +CARV12.549 PO; +CEFD300C3 PO; -DULO-31 PO; +DULO30CA52 PO; -FERR324T23 PO; -FURO-149 PO; -GABA300C PO; +GABA600T13 PO; +HYDR-3972 PO; -IPRA3AMP9 IH; +ISOS30TA84 PO; -LEVO125T PO; +LEVO150T8 PO; -LUTE1CAP5 PO; +MAGN200T8 PO; -MAGN250T11 PO; +MEMA10TA PO; +MODA100T31 PO; -MODA200T48 PO; -MONT-40 PO; +MONT-47 PO; -MULT-38 PO; -NITR0.4T51 SL; -ONDA-103 PO; -PANT40TA54 PO; +POTA2TAB6 PO; -POTA99TA18 PO; +TORS20TA3 PO
[2022-05-13] MEDS ORDERED: normal saline 1000ML IV soln IVB ONE (20:25)
[2022-05-13] MEDS ORDERED: ondansetron/PF 4mg/2ml inj IV ONE (20:25)
[2022-05-13 20:34] LABS: CLARITY,URINE CLEAR (Clear); COLOR,URINE YELLOW (Yellow); GLUCOSE, URINE NEGATIVE (Neg); KETONES,URINE NEGATIVE (Neg); LEUKOCYTE ESTERASE ,URINE NEGATIVE (Neg); NITRITES, URINE NEGATIVE (Neg); OCCULT BLOOD,URINE NEGATIVE (Neg); PH,URINE 6.5 (4.8-8.0); PROTEIN,URINE NEGATIVE (Neg); UROBILINOGEN,URINE 0.2 E.U/dL (0.2-1.0)
[2022-05-13 20:37] LABS: UA COLLECTION TYPE CLN CATCH MIDSTREAM
--- NOTE | 2022-05-13 21:22 | NUR ---
PT DENIES NAUSEA, DOESN'T WANT ZOFRAN AT THIS TIME.
[2022-05-13 21:38] LABS: BASOPHILS # (AUTO) 0.1 X10'3 (0-0.2); BASOPHILS % (AUTO) 1.7 % (0-1); EOSINOPHILS # (AUTO) 0.1 X10'3 (0-0.9); HEMATOCRIT 29.5 % (35.0-45.0); HEMOGLOBIN 9.6 g/dl (12.0-16.0); LYMPHOCYTES # (AUTO) 0.6 X10'3 (1.1-4.8); LYMPHOCYTES % (AUTO) 14.9 % (21-51); MEAN CORPUSCULAR HEMOGLOBIN 31.4 PG (27.0-31.0); MEAN CORPUSCULAR HGB CONC 32.4 g/dL (33.0-36.5); MEAN CORPUSCULAR VOLUME 96.9 FL (78-98); MEAN PLATELET VOLUME 8.6 FL (7.4-10.4); MONOCYTES # (AUTO) 0.8 X10'3 (0-0.9); MONOCYTES % (AUTO) 20.1 % (2-12); NEUTROPHILS # (AUTO) 2.5 X10'3 (1.8-7.7); NEUTROPHILS % (AUTO) 61.3 % (42-75); PLATELET COUNT 128 X10'3 (140-440); RED BLOOD COUNT 3.04 X10'6 (4.20-5.60); RED CELL DISTRIBUTION WIDTH 19.9 % (11.5-14.5)
[2022-05-13 21:43] LABS: ALBUMIN 3.5 G/DL (3.4-5.0); ALBUMIN/GLOBULIN RATIO 1.1 (1.1-1.5); ALKALINE PHOSPHATASE 131 IU/L (46-116); ANION GAP 5 (8-16); ASPARTATE AMINO TRANSFERASE 19 U/L (10-37); BILIRUBIN,TOTAL 0.5 MG/DL (0.1-1.0); BLOOD UREA NITROGEN 17 MG/DL (7-18); BUN/CREATININE RATIO 16.5 (10.0-20.0); CALCIUM 9.6 MG/DL (8.5-10.1); CHLORIDE 100 MMOL/L (99-107); CREATININE 1.03 MG/DL (0.40-0.90); GLUCOSE 93 MG/DL (70-104); SODIUM 140 MMOL/L (135-145); TOTAL CARBON DIOXIDE 35.3 MMOL/L (24-32); TOTAL PROTEIN 6.8 G/DL (6.4-8.2); eGFR 51 ML/MIN
[2022-05-13 21:46] LABS: LIPASE 83 U/L (73-393)
[2022-05-13 21:54] LABS: ALANINE AMINOTRANSFERASE < 6 U/L (12-78)
[2022-05-13 23:48] VITALS: BP 127/59
[2022-05-14 02:04] LABS: ANISOCYTOSIS 2+; PLATELET ESTIMATE DECREASED; TARGET CELLS FEW; TEAR DROP CELLS FEW; TOTAL CELLS COUNTED 100
== END 2022-05-14 01:31 ==
LOC: ER 17:12
DX: R53.83 Other fatigue (principal); R19.02 Left upper quadrant abdominal swelling, mass and lump; R53.81 Other malaise; I11.0 Hypertensive heart disease with heart failure; I50.9 Heart failure, unspecified; E78.00 Pure hypercholesterolemia, unspecified; J44.9 Chronic obstructive pulmonary disease, unspecified; M19.90 Unspecified osteoarthritis, unspecified site; Z91.040 Latex allergy status; Z88.5 Allergy status to narcotic agent; Z90.49 Acquired absence of other specified parts of digestive tract
CPT/HCPCS: 36415; 74176; 80053; 81003; 83690; 84484; 85007; 85025; 96360; 96361; 99284; J7030

== ENCOUNTER 2022-12-15 09:08 | Emergency (ER) | payer MEDICARE, OTHER ==
[~2022-12-15] VITALS: Ht 157.5 cm; Wt 156.0 kg
[~2022-12-15 09:08] MED LIST changes: -ACET325T57 PO; -CEFD300C3 PO; -MECL-159 PO; -TORS20TA3 PO
[2022-12-15] MEDS ORDERED: acetaminophen 325mg tablet PO ONE (09:30)
[2022-12-15 09:59] LABS: BASOPHILS # (AUTO) 0.1 X10'3 (0-0.2); BASOPHILS % (AUTO) 1.4 % (0-1); EOSINOPHILS # (AUTO) 0.2 X10'3 (0-0.9); EOSINOPHILS % (AUTO) 2.8 % (0-6); HEMATOCRIT 38.3 % (35.0-45.0); HEMOGLOBIN 12.4 g/dl (12.0-16.0); LYMPHOCYTES # (AUTO) 0.8 X10'3 (1.1-4.8); LYMPHOCYTES % (AUTO) 11.3 % (21-51); MEAN CORPUSCULAR HEMOGLOBIN 30.5 PG (27.0-31.0); MEAN CORPUSCULAR HGB CONC 32.3 g/dL (33.0-36.5); MEAN CORPUSCULAR VOLUME 94.5 FL (78-98); MEAN PLATELET VOLUME 8.8 FL (7.4-10.4); MONOCYTES # (AUTO) 1.1 X10'3 (0-0.9); MONOCYTES % (AUTO) 15.9 % (2-12); NEUTROPHILS # (AUTO) 4.6 X10'3 (1.8-7.7); NEUTROPHILS % (AUTO) 68.6 % (42-75); PLATELET COUNT 117 X10'3 (140-440); RED BLOOD COUNT 4.05 X10'6 (4.20-5.60); WHITE BLOOD COUNT 6.8 X10'3 (4.5-11.0)
[2022-12-15 10:13] LABS: ALBUMIN 3.7 G/DL (3.4-5.0); ALKALINE PHOSPHATASE 142 IU/L (46-116); ANION GAP 7 (8-16); ASPARTATE AMINO TRANSFERASE 21 U/L (10-37); BILIRUBIN,TOTAL 0.7 MG/DL (0.1-1.0); BLOOD UREA NITROGEN 22 MG/DL (7-18); BUN/CREATININE RATIO 17.7 (10.0-20.0); CALCIUM 9.7 MG/DL (8.5-10.1); CHLORIDE 102 MMOL/L (99-107); CREATININE 1.24 MG/DL (0.40-0.90); GLUCOSE 106 MG/DL (70-104); POTASSIUM 3.9 MMOL/L (3.5-5.1); SODIUM 140 MMOL/L (135-145); TOTAL PROTEIN 7.5 G/DL (6.4-8.2); eCRCL 25 ML/MIN; eGFR 41 ML/MIN
[2022-12-15 10:24] LABS: ALANINE AMINOTRANSFERASE 8 U/L (12-78); MAGNESIUM 2.3 MG/DL (1.5-2.4); PRO BRAIN NATRIURETIC PEPTIDE 3748 PG/ML (0-450)
[2022-12-15 12:54] VITALS: BP 128/58; PULSE 71; RESP 16; TEMP 97.9; O2SAT 96
--- NOTE | 2022-12-15 13:07 | NUR ---
REPORT CALLED TO MK LEW AT [facility]. PATIENT BEING TAKEN HOME BY DAUGHTER IN LAW AND SON. WHEEL CHAIRED OUT OF ER AND HAD ALL BELONGINGS WITH HER.
[2022-12-15 16:46] LABS: ANISOCYTOSIS 3+; PLATELET ESTIMATE DECREASED
[2022-12-15 16:47] LABS: BURR CELLS FEW; ELLIPTOCYTES FEW; SCHISTOCYTES FEW
== END 2022-12-15 12:54 | disposition home or self-care (01) ==
LOC: ER 09:08
DX: M54.6 Pain in thoracic spine (principal); M25.511 Pain in right shoulder; Z00.8 Encounter for other general examination; I11.0 Hypertensive heart disease with heart failure; I50.9 Heart failure, unspecified
CPT/HCPCS: 36415; 71045; 72070; 80053; 83735; 83880; 84484; 85008; 85025; 93005; 99285

== ENCOUNTER → 2023-02-03 | Emergency (ER) | payer MEDICARE, OTHER ==
[~2023-02-03] VITALS: Ht 162.6 cm; Wt 79.5 kg
[~2023-02-03] MED LIST changes: +HYDROcodone/acetaminophen 5mg/325mg tablet PO ONE
[2023-02-03 05:54] VITALS: TEMP 98
[2023-02-03 09:05] VITALS: BP 136/61; PULSE 83; O2SAT 95
[2023-02-03 09:32] VITALS: RESP 18
== END | disposition home or self-care (01) ==
LOC: ER 05:35
DX: M54.9 Dorsalgia, unspecified (principal); M54.2 Cervicalgia; I70.0 Atherosclerosis of aorta; M79.601 Pain in right arm
CPT/HCPCS: 70450; 71250; 72125; 74176; 99285